=== PATIENT | male | born 1935 | race Caucasian/White ===

== ENCOUNTER → 2017-06-05 | Outpatient (CLI) | payer MEDICARE, OTHER ==
--- NOTE | 2017-06-05 12:55 | RADIOLOGY REPORT (SQ) ---
EXAM DESCRIPTION: BARIUM SWALLOW ESOPHAGUS COMPLETED DATE/TIME: 06/05/2017 9:55 am REASON FOR STUDY: R13.10 DYSPHAGIA, UNSPECIFIED R13.10 DYSPHAGIA, UNSPECIFIED COMPARISON: None. TECHNIQUE: Under fluoroscopic guidance, patient ingested effervescent granules followed by thick and thin barium. Fluoroscopic spot images and routine radiographic images acquired and stored on PACS. 12 MM BARIUM TABLET GIVEN: Yes. Delay in passage at the GE junction. LIMITATIONS: None. FLUOROSCOPY TIME: FLUORO TIME: 1 minutes 35 seconds 14 images saved to PACS. FINDINGS: NEUROMUSCULAR COORDINATION OF SWALLOW: Normal. No aspiration. ESOPHAGEAL MOTILITY: Normal peristalsis. No esophageal spasm. ESOPHAGEAL MUCOSA: Normal mucosa without masses or ulceration. GASTRO-ESOPHAGEAL JUNCTION: Slight narrowing at the GE junction that delayed passage of a 12 mm bariu m tablet for approximately 2-1/2 minutes. Small sliding hiatal hernia with free-flowing gastroesopha geal reflux seen. NON-GI TRACT STRUCTURES: No significant finding. OTHER: No other significant finding. 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 RECOMMENDATION: RECOMMEND UPPER ENDOSCOPY AND INTERVENTION OF THE DISTAL ESOPHAGEAL STRICTURE. COMMENT: Quality ID [id number]: Final reports for procedures using fluoroscopy that document radiation exp osure indices, or exposure time and number of fluorographic images (if radiation exposure indices are not available) TECHNICAL DOCUMENTATION: JOB ID: [id number] [employer]- All Rights Reserved Reading location - IP/workstation name: [facility]
== END ==
LOC: RAD 10:38
PROVIDERS: ATTEND Internal Medicine Gastroenterology
DX: R13.10 Dysphagia, unspecified (principal)
CPT/HCPCS: 74220